=== PATIENT | male | born 1965 | race Caucasian/White ===

== ENCOUNTER 2024-10-24 17:43 | Inpatient (IN) | payer OTHER ==
[2024-10-24 18:21] LABS: #Basophils 0.03 10x3/uL (0.0-0.2); %Basophils 0.5 % (0.0-1.0); %Eosinophils 2.5 % (0.0-10.0); %Lymphocytes 33.7 % (21.0-51.0); %Monocytes 10.8 % (0.0-10.0); %Neutrophils 52.2 % (42.0-75.0); Hematocrit 39.3 % (42.0-52.0); Hemoglobin 13.7 g/dL (14.0-18.0); Mean Corpuscular HGB CONC 34.9 g/dL (32.0-36.0); Mean Corpuscular Hemoglobin 31.1 pg (27.0-31.0); Mean Corpuscular Volume 89.1 fL (78.0-98.0); Mean Platelet Volume 10.8 fL (7.4-10.4); Platelet Count 212 10x3/uL (130-400); RBC Distribution Width 12.1 % (11.5-14.5); Red Blood Cell (RBC) Count 4.41 mill/uL (4.70-6.10)
[2024-10-24 18:43] LABS: Prothrombin Time 12.8 sec (12.0-14.7); Troponin I 0.023 ng/mL (< 0.028)
[2024-10-24 18:47] LABS: PTT 27.2 sec (22.9-36.1)
[2024-10-24 18:55] LABS: ALT (SGPT) 28 U/L (8-55); AST (SGOT) 18 U/L (5-34); Albumin 3.9 g/dL (3.5-5.0); Alkaline Phosphatase 90 U/L (40-110); Anion Gap 13 mmol/L (10-20); BUN (Urea Nitrogen) 13 mg/dL (8.4-25.7); Bilirubin, Total 0.3 mg/dL (0.2-1.2); Calc. Creatinine Clearance 0 mL/min (70-130); Calcium 9.2 mg/dL (7.8-10.44); Carbon Dioxide 27 mmol/L (22-29); Chloride 102 mmol/L (98-107); Estimated GFR 75; Globulin 3.4 g/dL (2.4-3.5); Glucose 193 mg/dL (70-105); Lipase 21 U/L (8-78); Protein, Total 7.3 g/dL (6.0-8.3); Sodium 138 mmol/L (136-145)
[2024-10-24 20:26] LABS: D-Dimer Test Less than 0.27 mcg/mL (0.27-0.43)
[2024-10-24 22:53] LABS: Troponin I 0.042 ng/mL (< 0.028)
[2024-10-24] MEDS ORDERED: Glucagon 1 MG/ML KIT IM PRN (22:56)
[2024-10-24] MEDS ORDERED: Dextrose 50% Abboject 50 ML SYRINGE SLOW IVP PRN (22:56)
[2024-10-24] MEDS ORDERED: Dextrose 5% in Water 1,000 ML IV PRN (22:56)
[2024-10-24] MEDS ORDERED: hydrALAZINE 20 MG/ML VIAL SLOW IVP PRN (23:06)
[2024-10-24] MEDS ORDERED: Nitroglycerin 0.4 MG TAB (25 Tab Bottle) SL PRN (23:14)
[2024-10-25] MEDS: Mag-Al Plus 1200/1200/120 MG (30 mL) UDCUP PO SCH (01:02)
[2024-10-25 01:08] VITALS: BMI 32.7
[2024-10-25] MEDS: Calcium Carbonate 500 MG ChewTAB PO PRN (01:19)
[2024-10-25] MEDS: hydrALAZINE 20 MG/ML VIAL SLOW IVP PRN (01:20)
[2024-10-25 01:38] LABS: Hemoglobin A1c 7.7 % (4.0-6.0)
[2024-10-25 02:41] LABS: Troponin I 0.026 ng/mL (< 0.028)
[2024-10-25 05:10] LABS: #Basophils 0.04 10x3/uL (0.0-0.2); %Basophils 0.4 % (0.0-1.0); %Eosinophils 1.2 % (0.0-10.0); %Lymphocytes 19.2 % (21.0-51.0); %Monocytes 8.3 % (0.0-10.0); %Neutrophils 70.6 % (42.0-75.0); Hematocrit 41.7 % (42.0-52.0); Hemoglobin 14.5 g/dL (14.0-18.0); Mean Corpuscular HGB CONC 34.8 g/dL (32.0-36.0); Mean Corpuscular Hemoglobin 30.9 pg (27.0-31.0); Mean Corpuscular Volume 88.7 fL (78.0-98.0); Mean Platelet Volume 10.9 fL (7.4-10.4); Platelet Count 209 10x3/uL (130-400); RBC Distribution Width 12.1 % (11.5-14.5)
[2024-10-25 05:12] LABS: Amphetamine Not Detected (NotDetected); Barbiturates Screen Not Detected (NotDetected); Benzodiazepine Screen Not Detected (NotDetected); Cocaine Metabolite Screen Not Detected (NotDetected); Methadone Not Detected (NotDetected); Methamphetamine Not Detected (NotDetected); Opiate Screen Not Detected (NotDetected); Oxycodone Screen Not Detected (NotDetected); Phencyclidine (PCP) Not Detected (NotDetected); THC/Cannabinoid Screen Not Detected (NotDetected); Tricyclic Screen Not Detected (NotDetected)
[2024-10-25 05:24] LABS: Anion Gap 14 mmol/L (10-20); BUN (Urea Nitrogen) 10 mg/dL (8.4-25.7); Calc. Creatinine Clearance 130 mL/min (70-130); Calcium 9.8 mg/dL (7.8-10.44); Carbon Dioxide 24 mmol/L (22-29); Chloride 106 mmol/L (98-107); Estimated GFR 99; Glucose 200 mg/dL (70-105); Potassium 3.9 mmol/L (3.5-5.1); Sodium 140 mmol/L (136-145)
[2024-10-25] MEDS: Heparin 5,000 UNITS/ML VIAL SC SCH (08:36)
[2024-10-25] MEDS ORDERED: Enoxaparin 40 MG (0.4 mL) SYRINGE SC SCH (09:00)
[2024-10-25] MEDS ORDERED: Regadenoson 0.4 MG/5 ML SYRINGE ONE (11:39)
[2024-10-25] MEDS: Mag-Al 1200 mg/1200 mg/30 ML UDCUP PO PRN (20:43)
[2024-10-25 22:36] LABS: Troponin I 0.473 ng/mL (< 0.028)
[2024-10-25] MEDS: Enoxaparin 100 MG (1 mL) SYRINGE SC SCH (23:09)
[2024-10-26 01:28] LABS: Troponin I 1.011 ng/mL (< 0.028)
[2024-10-26 03:26] LABS: #Basophils 0.04 10x3/uL (0.0-0.2); %Basophils 0.4 % (0.0-1.0); %Lymphocytes 28.3 % (21.0-51.0); %Monocytes 10.2 % (0.0-10.0); %Neutrophils 59.8 % (42.0-75.0); Hematocrit 42.9 % (42.0-52.0); Mean Corpuscular Hemoglobin 30.9 pg (27.0-31.0); Mean Corpuscular Volume 88.5 fL (78.0-98.0); Mean Platelet Volume 10.6 fL (7.4-10.4); Platelet Count 215 10x3/uL (130-400); RBC Distribution Width 12.2 % (11.5-14.5); Red Blood Cell (RBC) Count 4.85 mill/uL (4.70-6.10)
[2024-10-26 03:50] LABS: Troponin I 1.463 ng/mL (< 0.028)
[2024-10-26 04:23] LABS: Anion Gap 17 mmol/L (10-20); BUN (Urea Nitrogen) 9 mg/dL (8.4-25.7); Calc. Creatinine Clearance 143 mL/min (70-130); Calcium 9.4 mg/dL (7.8-10.44); Carbon Dioxide 23 mmol/L (22-29); Chloride 103 mmol/L (98-107); Estimated GFR 102; Glucose 193 mg/dL (70-105); Potassium 3.7 mmol/L (3.5-5.1); Sodium 139 mmol/L (136-145)
[2024-10-26 07:44] LABS: Critical Call Chem Troponin I NUR.JLW500; Troponin I 2.038 ng/mL (< 0.028)
[2024-10-26] MEDS: Metoprolol Tartrate 25 MG TAB PO SCH (08:34)
[2024-10-26] MEDS: Enoxaparin 100 MG (1 mL) SYRINGE SC SCH (08:35)
[2024-10-26 11:12] LABS: Critical Call Chem Troponin I RESULT DECREASING; Troponin I 1.878 ng/mL (< 0.028)
[2024-10-26] MEDS: Insulin Lispro 100 UNIT/ML 10 ML VIAL SC PRN (20:07)
[2024-10-27 04:45] LABS: #Basophils 0.06 10x3/uL (0.0-0.2); %Basophils 0.7 % (0.0-1.0); %Eosinophils 2.4 % (0.0-10.0); %Lymphocytes 34.4 % (21.0-51.0); %Monocytes 10.2 % (0.0-10.0); %Neutrophils 51.8 % (42.0-75.0); Hematocrit 44.7 % (42.0-52.0); Hemoglobin 15.1 g/dL (14.0-18.0); Mean Corpuscular HGB CONC 33.8 g/dL (32.0-36.0); Mean Corpuscular Hemoglobin 30.4 pg (27.0-31.0); Mean Corpuscular Volume 90.1 fL (78.0-98.0); Platelet Count 221 10x3/uL (130-400); RBC Distribution Width 12.3 % (11.5-14.5); Red Blood Cell (RBC) Count 4.96 mill/uL (4.70-6.10)
[2024-10-27 05:08] LABS: Anion Gap 13 mmol/L (10-20); BUN (Urea Nitrogen) 11 mg/dL (8.4-25.7); Calc. Creatinine Clearance 126 mL/min (70-130); Calcium 9.2 mg/dL (7.8-10.44); Carbon Dioxide 24 mmol/L (22-29); Chloride 103 mmol/L (98-107); Estimated GFR 98; Glucose 177 mg/dL (70-105); Potassium 3.8 mmol/L (3.5-5.1); Sodium 136 mmol/L (136-145)
[2024-10-27] MEDS: Aspirin 325 mg Enteric Coated Tablet PO SCH (08:45)
[2024-10-27] MEDS: Insulin Glargine 30 UNITS/0.3 ML VIAL SC SCH (10:32)
[2024-10-27] MEDS: Insulin Lispro 100 UNIT/ML 10 ML VIAL SC PRN (16:59)
[2024-10-28 04:57] LABS: #Basophils 0.07 10x3/uL (0.0-0.2); %Basophils 0.8 % (0.0-1.0); %Eosinophils 2.2 % (0.0-10.0); %Monocytes 12.3 % (0.0-10.0); %Neutrophils 49.1 % (42.0-75.0); Hematocrit 46.9 % (42.0-52.0); Hemoglobin 15.8 g/dL (14.0-18.0); Mean Corpuscular HGB CONC 33.7 g/dL (32.0-36.0); Mean Corpuscular Hemoglobin 30.9 pg (27.0-31.0); Mean Corpuscular Volume 91.6 fL (78.0-98.0); Platelet Count 176 10x3/uL (130-400); RBC Distribution Width 12.4 % (11.5-14.5); Red Blood Cell (RBC) Count 5.12 mill/uL (4.70-6.10)
[2024-10-28 05:13] LABS: Anion Gap 15 mmol/L (10-20); BUN (Urea Nitrogen) 12 mg/dL (8.4-25.7); Calc. Creatinine Clearance 127 mL/min (70-130); Calcium 9.4 mg/dL (7.8-10.44); Carbon Dioxide 19 mmol/L (22-29); Chloride 106 mmol/L (98-107); Estimated GFR 98; Glucose 142 mg/dL (70-105); Potassium 4.2 mmol/L (3.5-5.1); Sodium 136 mmol/L (136-145)
[2024-10-28] MEDS ORDERED: Communication Order-Pharmacy FS SCH (06:00)
[2024-10-28] MEDS: Insulin Glargine 30 UNITS/0.3 ML VIAL SC SCH (06:08)
[2024-10-28] MEDS ORDERED: PHENYLEPHRINE-NS 100 MCG/ML 10 ML SYRINGE ONE (06:56)
[2024-10-28] MEDS ORDERED: Atropine Sulfate 1 mg/10 ml Syringe ONE (06:56)
[2024-10-28] MEDS ORDERED: Nitroglycerin 50 MG/250 ML BOT 250 ML ONE (06:56)
[2024-10-28] MEDS ORDERED: Verapamil 5 MG/2 ML VIAL ONE (06:56)
[2024-10-28] MEDS ORDERED: Heparin 10,000 UNITS/ 10 ML VIAL ONE ×2 (06:56→09:39)
[2024-10-28] MEDS ORDERED: Midazolam HCl 2 mg/2 ml Vial ONE ×2 (09:03→10:10)
[2024-10-28] MEDS ORDERED: fentaNYL 50 mcg/mL 1 mL Vial ONE (09:03)
[2024-10-28] MEDS ORDERED: TICAGRELOR 90 MG TABLET ONE (10:29)
[2024-10-28] MEDS ORDERED: Iopamidol 370 76% 100 ML VIAL ONE (11:56)
[2024-10-28] MEDS: TICAGRELOR 90 MG TABLET PO SCH ×2 (13:00→20:15)
[2024-10-28] MEDS: Atorvastatin Calcium 40 MG TAB PO SCH (20:15)
[2024-10-29 05:00] LABS: #Basophils 0.06 10x3/uL (0.0-0.2); %Basophils 0.6 % (0.0-1.0); %Eosinophils 2.4 % (0.0-10.0); %Lymphocytes 27.4 % (21.0-51.0); %Monocytes 11.9 % (0.0-10.0); Hematocrit 43.7 % (42.0-52.0); Hemoglobin 14.9 g/dL (14.0-18.0); Mean Corpuscular HGB CONC 34.1 g/dL (32.0-36.0); Mean Corpuscular Hemoglobin 30.8 pg (27.0-31.0); Mean Corpuscular Volume 90.3 fL (78.0-98.0); Mean Platelet Volume 10.9 fL (7.4-10.4); Platelet Count 214 10x3/uL (130-400); RBC Distribution Width 12.4 % (11.5-14.5); Red Blood Cell (RBC) Count 4.84 mill/uL (4.70-6.10)
[2024-10-29 05:19] LABS: ALT (SGPT) 57 U/L (8-55); AST (SGOT) 35 U/L (5-34); Albumin 3.8 g/dL (3.5-5.0); Alkaline Phosphatase 79 U/L (40-110); Anion Gap 15 mmol/L (10-20); BUN (Urea Nitrogen) 10 mg/dL (8.4-25.7); Bilirubin, Total 0.8 mg/dL (0.2-1.2); Calc. Creatinine Clearance 126 mL/min (70-130); Calcium 9.3 mg/dL (7.8-10.44); Carbon Dioxide 23 mmol/L (22-29); Chloride 105 mmol/L (98-107); Estimated GFR 98; Globulin 3.4 g/dL (2.4-3.5); Glucose 154 mg/dL (70-105); Potassium 3.9 mmol/L (3.5-5.1); Protein, Total 7.2 g/dL (6.0-8.3); Sodium 139 mmol/L (136-145)
[2024-10-29] MEDS ORDERED: Aspirin 81 mg Enteric Coated Tablet PO SCH (09:00)
[2024-10-29] MEDS: Aspirin Chewable 81 MG TAB PO SCH (09:20)
[2024-10-29] MEDS: Acetaminophen 325 MG TAB PO PRN (12:56)
[2024-10-29 16:39] VITALS: BP 140/94; TEMP 99.2
[2024-10-29] MEDS ORDERED: TICAGRELOR 90 MG TABLET PO SCH (21:00)
== END 2024-10-29 18:41 | DRG 321 ==
LOC: EEVIPCON 17:43 → ERS 17:43 → OBS 10-25 00:55 → OBSVTOIN 10-26 10:18
PROVIDERS: ADMIT Family Medicine; ATTEND Family Medicine
PROC: 027035Z Dilation of Coronary Artery, One Artery with Two Drug-eluting Intraluminal Devices, Percutaneous Approach (ICD-10-PCS; principal; 2024-10-28)
PROC: 4A023N7 Measurement of Cardiac Sampling and Pressure, Left Heart, Percutaneous Approach (ICD-10-PCS; 2024-10-28)
PROC: B2101ZZ Fluoroscopy of Single Coronary Artery using Low Osmolar Contrast (ICD-10-PCS; 2024-10-28)
PROC: B2151ZZ Fluoroscopy of Left Heart using Low Osmolar Contrast (ICD-10-PCS; 2024-10-28)
DX: I21.4 Non-ST elevation (NSTEMI) myocardial infarction (principal); I50.21 Acute systolic (congestive) heart failure; I11.0 Hypertensive heart disease with heart failure; I25.10 Atherosclerotic heart disease of native coronary artery without angina pectoris; E11.9 Type 2 diabetes mellitus without complications; E78.5 Hyperlipidemia, unspecified; K21.9 Gastro-esophageal reflux disease without esophagitis; Z87.891 Personal history of nicotine dependence
CPT/HCPCS: 36415; 36416; 71045; 78452; 80048; 80053; 80061; 80306; 83036; 83690; 83880; 84443; 84484; 85025; 85347; 85379; 85610; 85730; 92928; 93005; 93010; 93017; 93306; 93458; 93798; 96372; 99152; 99153; A9502; C1769; C1874; C1887; C1894; C9600; G0378; J0360; J0461; J1644; J1650; J1815; J2250; J2785; J3010; Q9967

== ENCOUNTER 2024-10-31 12:14 | Emergency (ER) | payer OTHER ==
[2024-10-31 13:11] LABS: #Basophils 0.04 10x3/uL (0.0-0.2); %Basophils 0.7 % (0.0-1.0); %Lymphocytes 24.2 % (21.0-51.0); %Monocytes 8.2 % (0.0-10.0); %Neutrophils 64.2 % (42.0-75.0); Hematocrit 40.1 % (42.0-52.0); Mean Corpuscular HGB CONC 34.9 g/dL (32.0-36.0); Mean Corpuscular Hemoglobin 31.1 pg (27.0-31.0); Mean Corpuscular Volume 89.1 fL (78.0-98.0); Mean Platelet Volume 10.5 fL (7.4-10.4); Platelet Count 186 10x3/uL (130-400); RBC Distribution Width 12.2 % (11.5-14.5)
[2024-10-31 13:30] LABS: ALT (SGPT) 55 U/L (Less than 45); AST (SGOT) 34 U/L (11-34); Albumin 4.2 g/dL (3.1-4.5); Alkaline Phosphatase 79 U/L (40-110); Anion Gap 13 mmol/L (10-20); BUN (Urea Nitrogen) 12 mg/dL (8.4-25.7); Bilirubin, Total 0.6 mg/dL (0.3-1.2); Calc. Creatinine Clearance 0 mL/min (70-130); Calcium 9.2 mg/dL (7.8-10.44); Carbon Dioxide 25 mmol/L (22-29); Chloride 104 mmol/L (98-107); Estimated GFR 85; Globulin 3.1 g/dL (2.4-3.5); Glucose 159 mg/dL (70-105); Protein, Total 7.3 g/dL (6.0-8.3); Sodium 138 mmol/L (136-145)
[2024-10-31 13:32] LABS: Troponin I 0.154 ng/mL (< 0.028)
[2024-10-31 16:36] LABS: Troponin I 0.127 ng/mL (< 0.028)
== END 2024-10-31 19:19 ==
LOC: ERS 12:14 → EEVIPCON 12:14 → ERS 19:19
DX: R07.89 Other chest pain (principal); R79.89 Other specified abnormal findings of blood chemistry; E78.00 Pure hypercholesterolemia, unspecified; I10 Essential (primary) hypertension; E11.9 Type 2 diabetes mellitus without complications; Z79.84 Long term (current) use of oral hypoglycemic drugs; Z79.4 Long term (current) use of insulin; Z79.899 Other long term (current) drug therapy
CPT/HCPCS: 36415; 71045; 80053; 84484; 85025; 93005; 94760